=== PATIENT | female | born 1990 | race African-American/Black ===

== ENCOUNTER 2019-10-22 07:40 | Emergency (ER) | payer MEDICAID ==
[~2019-10-22] VITALS: Ht 152.4 cm; Wt 77.1 kg
[~2019-10-22 07:40] MED LIST: UNOBMED
[2019-10-22 07:49] VITALS: BP 117/76
--- NOTE | 2019-10-22 07:51 | NUR ---
ED Nurse Note: PT. AAOX4. AMBULATORY. WALKWED IN TO ER FROM THE STREET. PT. STATED SHE HAS BEEN HAVING ABD PAIN SINCE THIS MORNING BUT DENIES N/V/D. PT. STATED THAT SHE JUST WANT TO SLEEP HERE.
--- NOTE | 2019-10-22 08:21 | NUR ---
ED Nurse Note: URINE SPECIMEN SENT DOWN TO THE LAB. DR. EDE ASSESSING THE PT. AND PT. STATED SHE JUST VOMITED A REDDISH COLORED-EMESIS. PT. STATED SHE HAS BEEN EATING HOT CHEETOS BECAUSE THAT IS HER FAVORITE. PT. DENIES TAKING ANY MEDICATION AT THIS TIME. NO S/S OF ACUTE DISTRESS NOTED.
--- NOTE | 2019-10-22 08:21 | Emergency Room Report ---
History of Present Illness General Chief Complaint: Abdominal Pain Source: Patient Present Illness HPI Patient is a 29-year-old female presents after vomiting earlier in the day. Patient vomited x1. She reportedly been eating hot Cheetos immediately prior to vomiting. Some prior history of psychiatric disease. Does not know what medication she takes.Patient reports having moderate epigastric burning sensation. Denies any hematemesis. Allergies: Coded Allergies: PENICILLINS (Verified Allergy, 06/11/13) Patient History Past Medical History: see triage record Last Menstrual Period: 09/28 Reviewed Nursing Documentation: PMH: Agreed; PSxH: Agreed Nursing Documentation-PMH Past Medical History: No History, Except For History Of Psychiatric Problem: Yes - Bipolar Review of Systems All Other Systems: negative except mentioned in HPI Physical Exam Vital Signs Date Time Temp Pulse Resp B/P (MAP) Pulse Ox O2 Delivery O2 Flow Rate FiO2 10/22/19 07:49 97.9 76 16 117/76 99 Room Air Sp02 EP Interpretation: reviewed, normal General Appearance: normal inspection, well appearing, no apparent distress, alert, GCS 15, obese Head: atraumatic ENT: normal ENT inspection, hearing grossly normal, normal voice Neck: normal inspection, full range of motion, supple, no bony tend Respiratory: normal inspection, lungs clear, normal breath sounds, no respiratory distress, no retraction, no wheezing Cardiovascular #1: regular rate, rhythm, no edema Gastrointestinal: normal inspection, normal bowel sounds, non tender, soft, no guarding, no hernia Genitourinary: no CVA tenderness Musculoskeletal: normal inspection, back normal, normal range of motion Neurologic: alert, motor strength/tone normal, contract assistant III-XII nml as tested, responsive, speech normal, normal inspection Psychiatric: normal inspection, judgement/insight normal, mood/affect normal Medical Decision Making Diagnostic Impression: Primary Impression: Gastritis ER Course Patient presented for abdominal pain. Differential diagnoses included ischemic bowel, appendicitis, perforated viscus, abdominal aortic aneurysm, inferior myocardial infarction, viral gastroenteritis among others. patient has a benign exam and does not appear to require any imaging or laboratory testing at this time. Patient was given medications for symptomatic treatment. Patient appears to recently been eating spicy food which is irritated her stomach. Patient does not report any bleeding issues. Patient appears to be stable for close outpatient follow up. The patient is advised to follow up with primary care doctor in 1-2 days. Patient is advised to return if any worsening condition or if any changes in status that are concerning. This report is dictated with [employer] field consultant software which may occasionally lead to discrepancies related to use of this software. Labs Test 10/22/19 08:19 Urine Color Pale yellow Urine Appearance Slightly cloudy Urine pH 6 (4.5-8.0) Urine Specific [place] 1.025 (1.005-1.035) Urine Protein Negative (NEGATIVE) Urine Glucose (UA) Negative (NEGATIVE) Urine Ketones Negative (NEGATIVE) Urine Blood 2+ (NEGATIVE) Urine Nitrite Negative (NEGATIVE) Urine Bilirubin Negative (NEGATIVE) Urine Urobilinogen Normal MG/DL (0.0-1.0) Urine Leukocyte Esterase Negative (NEGATIVE) Urine RBC 5-10 /HPF (0 - 2) Urine WBC 0-2 /HPF (0 - 2) Urine Squamous Epithelial Cells Many /LPF (NONE/OCC) Urine Bacteria Few /HPF (NONE) Urine HCG, Qualitative Negative (NEGATIVE) Last Vital Signs Date Time Temp Pulse Resp B/P (MAP) Pulse Ox O2 Delivery O2 Flow Rate FiO2 10/22/19 07:49 97.9 76 16 117/76 (90) 99 Room Air Status: improved Disposition: HOME, SELF-CARE Condition: Stable Scripts Ondansetron Odt* (ZOFRAN ODT*) 4 Mg Tab.rapdis 4 MG BC EVERY 8 HOURS, #10 TAB 0 Refills Prov: Coy Umanzor MD 10/22/19 Coy Umanzor MD Oct 22, 2019 08:21
--- NOTE | 2019-10-22 08:25 | NUR ---
ED Nurse Note: PT. REFUSED TO TAKE ANY MEDICATION. EXPLAINED THE RISK AND BENEFITS TO THE PT. PT. VERBALIZED THE UNDERSTANDING OF THE TEACHING AND STILL REFUSED. DR. DEE MADE AWARE.
[2019-10-22 08:28] LABS: APPEARANCE,URINE SLIGHTLY CLOUDY; BILIRUBIN, URINE NEGATIVE (NEGATIVE); COLOR,URINE PALE YELLOW; GLUCOSE, URINE (UA) NEGATIVE (NEGATIVE); KETONES,URINE NEGATIVE (NEGATIVE); LEUKOCYTE ESTERASE ,URINE NEGATIVE (NEGATIVE); NITRITE,URINE NEGATIVE (NEGATIVE); PH,URINE 6 (4.5-8.0); PROTEIN,URINE NEGATIVE (NEGATIVE); UROBILINOGEN,URINE NORMAL MG/DL (0.0-1.0)
[2019-10-22] MEDS ORDERED: ONDANSETRON ODT4 MG BC (09:16)
[2019-10-22 09:24] VITALS: BP 124/85
--- NOTE | 2019-10-22 09:24 | NUR ---
ER DISCHARGE NOTE: Patient is cleared to be discharged per ERMD, pt is aox4, on room air, with stable vital signs. pt was given dc and prescription instructions, pt was able to verbalize understanding, pt id band removed. pt is able to ambulate with steady gait. pt took all belongings.
== END 2019-10-22 09:24 | disposition home or self-care (01) ==
LOC: EMR 08:34
DX: R11.10 Vomiting, unspecified (principal); E66.9 Obesity, unspecified; Z88.0 Allergy status to penicillin; F31.9 Bipolar disorder, unspecified; Z68.33 Body mass index [BMI] 33.0-33.9, adult
CPT/HCPCS: 81003; 81025; Z7502; 99282